=== PATIENT | male | born 1965 | race Hispanic/Latino ===

== ENCOUNTER 2017-05-24 08:03 | Day surgery (SDC) | payer OTHER ==
[2015-05-25 13:04] VITALS: BMI 25.7
[2017-05-24] MEDS ORDERED: Propofol 10 mg/ml Inj (20 ML) ONE ×2 (08:52→09:30)
[2017-05-24] MEDS ORDERED: Sodium Chloride 0.9% 1,000 ML IV SCH (10:00)
[2017-05-24 17:24] VITALS: BP 116/85; PULSE 75; RESP 18; TEMP 98.5; O2SAT 98
== END 2017-05-24 11:20 | disposition home or self-care (01) ==
LOC: ENDO 08:03
PROVIDERS: ATTEND Internal Medicine Gastroenterology
DX: Z12.11 Encounter for screening for malignant neoplasm of colon (principal); Z85.038 Personal history of other malignant neoplasm of large intestine; K63.5 Polyp of colon; K62.1 Rectal polyp; K64.1 Second degree hemorrhoids
CPT/HCPCS: 45380; 45381; 45385; 88305; J2704; J7040 ×2